=== PATIENT | female | born 1955 | race Caucasian/White ===

== ENCOUNTER → 2020-06-23 16:16 | Outpatient (CLI) | payer BC, SELFPAY ==
--- NOTE | ~2020-06-23 | MM_ITS ---
EXAMINATION: MM screening jonathan BI w jean marie HISTORY: Screening TECHNIQUE: Craniocaudal and mediolateral oblique 3-D tomosynthesis images were obtained and synthetic 2-D images were generated. CAD analysis was submitted and interpreted. COMPARISON: Comparison to multiple prior studies sequentially, with oldest reviewed study dated 08/09. BREAST PARENCHYMAL COMPOSITION: There are scattered areas of fibroglandular density. FINDINGS: There is no evidence of suspicious mass, calcification, or architectural distortion to sugg est malignancy in either breast. There has been no suspicious interval change. IMPRESSION: 1. No mammographic evidence of malignancy. 2. Recommend routine screening mammography in one year. BI-RADS Category 1: Negative Reviewed, dictated and finalized at location A. AND [employer]PER[employer]
== END ==
PROVIDERS: PCP Physician Assistant; Visit Provider Physician Assistant
DX: Z12.31 Encounter for screening mammogram for malignant neoplasm of breast (principal)
CPT/HCPCS: 77063; 77067

== ENCOUNTER → 2021-02-15 07:25 | Outpatient (REF) | payer BC, SELFPAY | LOC: ANHLAB 07:25 | PROVIDERS: PCP Physician Assistant; Visit Provider Nurse Practitioner | DX: L98.9 Disorder of the skin and subcutaneous tissue, unspecified (principal) | CPT/HCPCS: 88305; 88331 ==

== ENCOUNTER → 2022-02-24 15:13 | Outpatient (CLI) | payer BC, SELFPAY ==
--- NOTE | ~2022-02-24 | MM_ITS ---
EXAMINATION: MM screening jonathan BI w jean marie HISTORY: Screening mammogram TECHNIQUE: Craniocaudal and mediolateral oblique 3-D tomosynthesis images were obtained and synthetic 2-D images were generated. CAD analysis was submitted and interpreted. COMPARISON: 06/23/2020, 12/25/2018, 03/03/2017 bilateral screening mammogram examinations BREAST PARENCHYMAL COMPOSITION: There are scattered areas of fibroglandular density. FINDINGS: There is no evidence of suspicious mass, calcification, or architectural distortion to sugg est malignancy in either breast. There has been no suspicious interval change. IMPRESSION: 1. No mammographic evidence of malignancy. 2. Recommend routine screening mammography in one year. BI-RADS Category 1: Negative Reviewed, dictated and finalized at location A.
== END ==
PROVIDERS: PCP Physician Assistant; Visit Provider Physician Assistant
DX: Z12.31 Encounter for screening mammogram for malignant neoplasm of breast (principal)
CPT/HCPCS: 77063; 77067

== ENCOUNTER 2023-09-29 10:25 | Outpatient (CLI) | payer MEDICARE, SELFPAY ==
--- NOTE | ~2023-09-29 | DEXA_ITS ---
Bone Density Report Name: LOULOU MARRERO Age: 67 Sex: Female Ethnicity: White Date of : 1955 Indication: osteopenia; height loss; prior fracture; postmenopausal Referring Provider: OMKAR, MANN Study: Bone densitometry was performed. Exam Date: September 29, 2023 Accession number: [id number] Bone Density: Region BMD T-score Z-score Classification AP Spine (L1-L4) 0.840 -1.9 -0.1 Osteopenia Femoral Neck (Left) 0.488 -3.2 -1.7 Osteoporosis Total Hip (Left) 0.699 -2.0 -0.7 Osteopenia Femoral Neck (Right) 0.602 -2.2 -0.7 Osteopenia Total Hip (Right) 0.770 -1.4 -0.1 Osteopenia Total Hip Mean 0.735 -1.7 -0.4 Osteopenia World Health Organization criteria for BMD impression classify patients as: Normal (T-score at or above -1.0), Osteopenia (T-score between -1.0 and -2.5), or Osteoporosis (T-score at or below -2.5). 10-year Fracture Risk: FRAX not reported because: Some T-score for Spine Total or Hip Total or Femoral Neck at or below -2.5 Previous Exams: Region Exam Age BMD T-score BMD Change BMD Change Date g/cm2 vs Baseline vs Previous AP Spine(L1-L4) 09/29/2023 67 0.840 -1.9 -0.021 0.004 12/25/2018 63 0.836 -1.9 -0.025* -0.009 03/03/2017 61 0.845 -1.8 -0.016 -0.016 09/24/2014 58 0.861 -1.7 Total Hip(Left) 09/29/2023 67 0.699 -2.0 -0.019 0.002 12/25/2018 63 0.697 -2.0 -0.021 0.001 03/03/2017 61 0.696 -2.0 -0.022 -0.022 09/24/2014 58 0.718 -1.8 Total Hip(Right) 09/29/2023 67 0.770 -1.4 -0.020 -0.001 12/25/2018 63 0.770 -1.4 -0.019 -0.012 03/03/2017 61 0.782 -1.3 -0.008 -0.008 09/24/2014 58 0.790 -1.2 *Denotes significance at 95% confidence level, LSC for AP Spine = 0.022 g/cm2, LSC for Total Hip = 0.027 g/cm2 Clinical Information Provided by Patient: Has had a low trauma fracture Has used the following medications: Vitamin D, Calcium, MTV, SYNTHROID Patient maximum height was 65.2 Menopause Age: 56 Does not regularly consume dairy products Drinks caffeinated beverages Onset of menses at age 16 Number of children 3 Missed period for more than 6 months in a row Impression: The patient has established osteoporosis, based on the Left Femoral Neck T-score and the existence of a prior fracture. The patient has risk factors, including: previou
== END 2023-09-29 10:26 ==
PROVIDERS: PCP Physician Assistant; Visit Provider Physician Assistant
DX: Z78.0 Asymptomatic menopausal state (principal); M85.88 Other specified disorders of bone density and structure, other site; M81.0 Age-related osteoporosis without current pathological fracture; M85.852 Other specified disorders of bone density and structure, left thigh; M85.851 Other specified disorders of bone density and structure, right thigh
CPT/HCPCS: 77080

== ENCOUNTER 2023-10-16 15:37 | Outpatient (CLI) | payer MEDICARE, SELFPAY ==
--- NOTE | ~2023-10-16 | MM_ITS ---
EXAMINATION: MM screening jonathan BI w jean marie HISTORY: Screening TECHNIQUE: Craniocaudal and mediolateral oblique 3-D tomosynthesis images were obtained and synthetic 2-D images were generated. CAD analysis was submitted and interpreted. COMPARISON: Comparison to multiple prior studies sequentially, with oldest reviewed study dated 09/24. BREAST PARENCHYMAL COMPOSITION: Not dense: There are scattered areas of fibroglandular density. FINDINGS: There is focal asymmetry in the lower aspect of the left breast on MLO view. The right jose j st is stable without evidence for malignancy. IMPRESSION: 1. New focal left breast asymmetry inferiorly on MLO view. 2. Additional mammographic views and possible breast ultrasound are recommended. BI-RADS CATEGORY 0 - INCOMPLETE STUDY, NEED ADDITIONAL IMAGING EVALUATION. Reviewed, dictated and finalized at location A. IMPRESSION: 1. New focal left breast asymmetry inferiorly on MLO view. 2. Additional mammographic views and possible breast ultrasound are recommended . BI-RADS CATEGORY 0 - INCOMPLETE STUDY, NEED ADDITIONAL IMAGING EVALUATION.
== END 2023-10-16 15:38 ==
PROVIDERS: PCP Physician Assistant; Visit Provider Physician Assistant
DX: Z12.31 Encounter for screening mammogram for malignant neoplasm of breast (principal); R92.8 Other abnormal and inconclusive findings on diagnostic imaging of breast
CPT/HCPCS: 77063; 77067

== ENCOUNTER 2023-11-15 09:42 | Outpatient (CLI) | payer MEDICARE, SELFPAY ==
--- NOTE | ~2023-11-15 | MMUS_ITS ---
EXAMINATION: MM diagnostic jonathan LT w jean marie, US breast LT limited HISTORY: Follow-up left breast asymmetry TECHNIQUE: Additional 3-D tomosynthesis images of the left breast were performed and synthetic 2-D im ages were generated. CAD analysis was submitted and interpreted. High resolution Limited left breast ultrasound was performed. COMPARISON: Comparison to multiple prior studies sequentially, with oldest reviewed study dated 09/24. BREAST PARENCHYMAL COMPOSITION: Not dense: There are scattered areas of fibroglandular density. FINDINGS: MAMMOGRAPHIC FINDINGS: There is persistent asymmetry in the lower aspect of the left breast, although no discrete mass ident ified. There are no suspicious calcifications or architectural distortion. There is mild skin thicken ing surrounding the left nipple. ULTRASOUND: Limited left breast ultrasound: At 6:00, 2 cm from the nipple there is an irregular shaped hypoechoic mass with posterior shadowing measuring 8 x 6 x 4 mm. No internal vascularity. IMPRESSION: 1. Complex irregular shaped 8mm mass of the left breast at 6:00, 2 cm from the nipple. 2. Ultrasound-guided left breast biopsy recommended. BI-RADS category 4, suspicious findings. Reviewed, dictated and finalized at location B. IMPRESSION: 1. Complex irregular shaped 8mm mass of the left breast at 6:00, 2 cm from the nipple. 2. Ultrasound-guided left breast biopsy recommended. BI-RADS category 4, suspicious findings.
== END 2023-11-15 09:43 ==
LOC: MICIMG 09:44
PROVIDERS: PCP Physician Assistant; Visit Provider Physician Assistant
DX: R92.8 Other abnormal and inconclusive findings on diagnostic imaging of breast (principal); N63.20 Unspecified lump in the left breast, unspecified quadrant
CPT/HCPCS: 76642; 77061; 77065; G0279